=== PATIENT | female | born 1965 | race Caucasian/White ===

== ENCOUNTER 2017-06-03 16:06 | Emergency (ER) | payer BC ==
[~2017-06-03] VITALS: Ht 167.6 cm; Wt 79.0 kg
[~2017-06-03 16:06] MED LIST: ALPR0.5T3 PO; LYRI75CA PO; MIGR4SPR INH; NAPR500 PO; PROM12.54 PO; TOPI1CAP22 PO; VALA1TAB PO
[2017-06-03 16:08] VITALS: BP 135/62; PULSE 87; RESP 15; TEMP 97.9; O2SAT 99
[2017-06-03] MEDS ORDERED: SODIUM CHLOR 0.9% 1000 ML INJ 1,000 ML IV SCH (17:32)
[2017-06-03] MEDS ORDERED: SODIUM CHLORIDE 0.9% FLUSH 10 ML FLUSH IV FLUSH PRN (17:45)
[2017-06-03 18:14] VITALS: O2SAT 98
--- NOTE | 2017-06-03 18:19 | PD ---
HPI Chief Complaint: GI Complaint Time Seen by Provider: 18:08 Travel History International Travel<30 days: No Contact w/Intl Traveler<30days: No Traveled to known affect area: No History of Present Illness HPI Patient's 51-year-old female presenting to emergency evaluation of left upper quadrant pain. Patient states the pain is impressive for 2-3 weeks, getting worse over the last several days. On May 24 she noted that she had bright red blood in the toilet, she did not have another episode like that but states that her stools have been loose and dark and appeared coffee ground like. She states pain is a 7 out of 10, she described as crampy and grabbing in nature. It lasts for a few minutes and then improved somewhat but does not resolve completely. He states she's felt nauseated but has not vomited. She reports she is not feeling well. She saw her primary doctor today who sent her to the emergency department for evaluation. Patient denies any history of GI bleed in the past. PFSH Past Medical History Reproductive: Yes (endometriosis) Migraines: Yes ?: Not Past Surgical History Cholecystectomy: Yes Social History Alcohol Use: Yes (occasional) Tobacco Use: No Substance Use: No Allergies-Medications (Allergen,Severity, Reaction): Coded Allergies: Imitrex (Verified Allergy, Severe, shock, 06/03/17) Bactrim (Verified Allergy, Intermediate, Hives, 06/03/17) Reported Meds & Prescriptions Reported Meds & Active Scripts Active Alprazolam 0.5 Mg Tab 0.5 Mg PO Q8H PRN Migranal Nasal (Dihydroergotamine Mesylate) 0.5 Mg/Act [place] 4 Mg INH DAILY 2 sprays each nostril as needed for migraine Naprosyn (Naproxen) 500 Mg Tab 500 Mg PO BID Lyrica (Pregabalin) 75 Mg Cap 75 Mg PO TID Topiramate ER (Topiramate) 100 Mg Cap 100 Mg PO DAILY Reported Promethazine (Promethazine HCl) 12.5 Mg Tab 25 Mg PO Q4H PRN Review of Systems Except as stated in HPI: all other systems reviewed are Neg HENT: No: Headaches Cardiovascular: No: Chest Pain or Discomfort Respiratory: No: Shortness of Breath Gastrointestinal: Positive: Nausea, Diarrhea, Abdominal Pain Genitourinary: No: Dysuria Neurologic: Positive: Weakness, No: Syncope Physical Exam Narrative GENERAL: Well-developed, well-nourished, alert female. Resting in no acute distress. SKIN: Warm and dry. HEAD: Atraumatic. Normocephalic. EYES: Pupils equal and round. No scleral icterus. No injection or drainage. ENT: No nasal bleeding or discharge. Mucous membranes pink and moist. NECK: Trachea midline. No JVD. CARDIOVASCULAR: Regular rate and rhythm. RESPIRATORY: No accessory muscle use. Clear to auscultation. Breath sounds equal bilaterally. GASTROINTESTINAL: Abdomen soft, tender to palpation in left upper quadrant, nondistended. Hepatic and splenic margins not palpable. Positive bowel sounds. MUSCULOSKELETAL: Extremities without clubbing, cyanosis, or edema. No obvious deformities. NEUROLOGICAL: Awake and alert. No obvious cranial nerve deficits. Motor grossly within normal limits. Five out of 5 muscle strength in the arms and legs. Normal speech. PSYCHIATRIC: Appropriate mood and affect; insight and judgment normal. Data Data Last Documented VS Vital Signs Date Time Temp Pulse Resp B/P Pulse Ox O2 Delivery O2 Flow Rate FiO2 06/03/17 19:05 17 06/03/17 18:32 92 145/76 100 Room Air 06/03/17 16:08 97.9 Orders Complete Blood Count With Diff (06/03/17 17:32) Comprehensive Metabolic Panel (06/03/17 17:32) Lipase (06/03/17 17:32) Prothrombin Time / Inr (Pt) (06/03/17 17:32) Act Partial Throm Time (Ptt) (06/03/17 17:32) Urinalysis - C+S If Indicated (06/03/17 17:32) Ct Abd/Pel W Iv Contrast(Rout) (06/03/17 17:32) Iv Access Insert/Monitor (06/03/17 17:32) Ecg Monitoring (06/03/17 17:32) Oximetry (06/03/17 17:32) NPO (06/03/17 17:32) Sodium Chlor 0.9% 1000 Ml Inj (Ns 1000 M (06/03/17 17:32) Sodium Chloride 0.9% Flush (Ns Flush) (06/03/17 17:45) Type And Screen (06/03/17 17:32) Ondansetron Inj (Zofran Inj) (06/03/17 18:30) Dicyclomine Inj (Bentyl Inj) (06/03/17 18:30) Iohexol 350 Inj (Omnipaque 350 Inj) (06/03/17 19:55) Labs Laboratory Tests Test 06/03/17 18:25 White Blood Count 11.5 TH/MM3 Red Blood Count 4.28 MIL/MM3 Hemoglobin 13.7 GM/DL Hematocrit 40.4 % Mean Corpuscular Volume 94.5 FL Mean Corpuscular Hemoglobin 31.9 PG Mean Corpuscular Hemoglobin 33.8 % Concent Red Cell Distribution Width 14.7 % Platelet Count 215 TH/MM3 Mean Platelet Volume 10.1 FL Neutrophils (%) (Auto) 70.2 % Lymphocytes (%) (Auto) 24.0 % Monocytes (%) (Auto) 4.8 % Eosinophils (%) (Auto) 0.5 % Basophils (%) (Auto) 0.5 % Neutrophils # (Auto) 8.1 TH/MM3 Lymphocytes # (Auto) 2.8 TH/MM3 Monocytes # (Auto) 0.6 TH/MM3 Eosinophils # (Auto) 0.1 TH/MM3 Basophils # (Auto) 0.1 TH/MM3 CBC Comment DIFF FINAL Differential Comment Prothrombin Time 11.0 SEC Prothromb Time International 1.0 RATIO Ratio Activated Partial 27.1 SEC Thromboplast Time Urine Color YELLOW Urine Turbidity HAZY Urine pH 6.5 Urine Specific [place] 1.023 Urine Protein TRACE mg/dL Urine Glucose (UA) NEG mg/dL Urine Ketones 150 mg/dL Urine Occult Blood NEG Urine Nitrite NEG Urine Bilirubin NEG Urine Urobilinogen LESS THAN 2.0 MG/DL Urine Leukocyte Esterase NEG Urine RBC 8 /hpf Urine WBC 1 /hpf Urine Squamous Epithelial <1 /hpf Cells Urine Amorphous Sediment RARE Urine Bacteria RARE /hpf Urine Mucus FEW /lpf Microscopic Urinalysis Comment CULT NOT INDICATED Sodium Level 140 MEQ/L Potassium Level 4.0 MEQ/L Chloride Level 108 MEQ/L Carbon Dioxide Level 22.3 MEQ/L Anion Gap 10 MEQ/L Blood Urea Nitrogen 16 MG/DL Creatinine 0.75 MG/DL Estimat Glomerular Filtration 81 ML/MIN Rate Random Glucose 84 MG/DL Calcium Level 8.8 MG/DL Total Bilirubin 0.3 MG/DL Aspartate Amino Transf 7 U/L (AST/SGOT) Alanine Aminotransferase 14 U/L (ALT/SGPT) Alkaline Phosphatase 21 U/L Total Protein 7.6 GM/DL Albumin 3.5 GM/DL Lipase 193 U/L Blood Type A POSITIVE Antibody Screen NEGATIVE Blood Bank Comment [facility] Medical Decision Making Medical Screen Exam Complete: Yes Emergency Medical Condition: Yes Interpretation(s) Last Impressions Abdomen/Pelvis CT 06/03/17 2422 Signed Impressions: Service Date/Time: Saturday, June 03, 2017 19:42 - CONCLUSION: 1. Diverticulosis without diverticulitis. 2. Atherosclerosis. 3. Left renal cysts. Sae Calle MD Laboratory Tests Test 06/03/17 18:25 White Blood Count 11.5 TH/MM3 Red Blood Count 4.28 MIL/MM3 Hemoglobin 13.7 GM/DL Hematocrit 40.4 % Mean Corpuscular Volume 94.5 FL Mean Corpuscular Hemoglobin 31.9 PG Mean Corpuscular Hemoglobin 33.8 % Concent Red Cell Distribution Width 14.7 % Platelet Count 215 TH/MM3 Mean Platelet Volume 10.1 FL Neutrophils (%) (Auto) 70.2 % Lymphocytes (%) (Auto) 24.0 % Monocytes (%) (Auto) 4.8 % Eosinophils (%) (Auto) 0.5 % Basophils (%) (Auto) 0.5 % Neutrophils # (Auto) 8.1 TH/MM3 Lymphocytes # (Auto) 2.8 TH/MM3 Monocytes # (Auto) 0.6 TH/MM3 Eosinophils # (Auto) 0.1 TH/MM3 Basophils # (Auto) 0.1 TH/MM3 CBC Comment DIFF FINAL Differential Comment Prothrombin Time 11.0 SEC Prothromb Time International 1.0 RATIO Ratio Activated Partial 27.1 SEC Thromboplast Time Urine Color YELLOW Urine Turbidity HAZY Urine pH 6.5 Urine Specific [place] 1.023 Urine Protein TRACE mg/dL Urine Glucose (UA) NEG mg/dL Urine Ketones 150 mg/dL Urine Occult Blood NEG Urine Nitrite NEG Urine Bilirubin NEG Urine Urobilinogen LESS THAN 2.0 MG/DL Urine Leukocyte Esterase NEG Urine RBC 8 /hpf Urine WBC 1 /hpf Urine Squamous Epithelial <1 /hpf Cells Urine Amorphous Sediment RARE Urine Bacteria RARE /hpf Urine Mucus FEW /lpf Microscopic Urinalysis Comment CULT NOT INDICATED Sodium Level 140 MEQ/L Potassium Level 4.0 MEQ/L Chloride Level 108 MEQ/L Carbon Dioxide Level 22.3 MEQ/L Anion Gap 10 MEQ/L Blood Urea Nitrogen 16 MG/DL Creatinine 0.75 MG/DL Estimat Glomerular Filtration 81 ML/MIN Rate Random Glucose 84 MG/DL Calcium Level 8.8 MG/DL Total Bilirubin 0.3 MG/DL Aspartate Amino Transf 7 U/L (AST/SGOT) Alanine Aminotransferase 14 U/L (ALT/SGPT) Alkaline Phosphatase 21 U/L Total Protein 7.6 GM/DL Albumin 3.5 GM/DL Lipase 193 U/L Blood Type A POSITIVE Antibody Screen NEGATIVE Blood Bank Comment Vital Signs Date Time Temp Pulse Resp B/P Pulse Ox O2 Delivery O2 Flow Rate FiO2 06/03/17 16:08 97.9 87 15 135/62 99 Differential Diagnosis GI bleed versus anemia versus pancreatitis versus obstruction versus UTI versus other Narrative Course Patient is a 51-year-old female that presented to emergency department for evaluation of abdominal pain and blood in her stool. Patient was evaluated by her primary doctor and sent to the emergency department for further workup. Hemoccult was negative. Labs and imaging ordered and pending. CT scan shows diverticulosis without diverticulitis CBC with a white count 11.5, hemoglobin 13.7 Chemistry is unremarkable Lipase is normal Urinalysis is not consistent with Urinary tract infection. Patient will be discharged home, she is encouraged follow-up with firing pin gauger and her primary care provider. Patient was given strict return process. She was advised to return immediately for any new or worsening symptoms. Patient is stable for discharge. [facility] Point of Care Fecal Specimen Occult Blood: Negative Diagnosis Primary Impression: Abdominal pain Qualified Code: R10.12 - Left upper quadrant pain Additional Impression: Diverticulosis Qualified Code: K57.90 - Diverticulosis of intestine without bleeding, unspecified intestinal tract location Referrals: [facility] Primary Care Physician Patient Instructions: Diverticulosis (ED), Diverticulosis Diet (ED), General Instructions Additional Instructions: Follow-up with your primary doctor Return to emergency department immediately for any new or worsening symptoms Med/Other Pt SpecificInfo: Prescription(s) given Scripts Dicyclomine (Bentyl)10 Mg Cap10 Mg PO TID PRN (Bowel Management) 7 Days Ref 0 Prov:Denae Rodriguez 06/03/17 Disposition: 01 DISCHARGE HOME Condition: Stable Denae Rodriguez Jun 03, 2017 18:19
[2017-06-03] MEDS ORDERED: PROM12.54 PO (18:21)
[2017-06-03] MEDS ORDERED: DICYCLOMINE HCL 20 MG/2 ML VIAL IM ONE (18:30)
[2017-06-03] MEDS ORDERED: ONDANSETRON HCL 4 MG/2 ML VIAL IV PUSH ONE (18:30)
[2017-06-03 18:32] VITALS: BP 145/76; PULSE 92; RESP 19; O2SAT 100
[2017-06-03 18:54] LABS: AUTOMATED NEUTROPHIL # 8.1 TH/MM3 (1.8-7.7); BASOPHIL # 0.1 TH/MM3 (0-0.2); BASOPHIL % 0.5 % (0.0-2.0); EOSINOPHIL # 0.1 TH/MM3 (0-0.4); EOSINOPHIL % 0.5 % (0.0-4.0); HEMATOCRIT 40.4 % (35.0-46.0); HEMO FLAGS DIFF FINAL; LYMPHOCYTE # 2.8 TH/MM3 (1.0-4.8); MEAN CELL VOLUME 94.5 FL (80.0-100.0); MEAN CORPUSCULAR HEMOGLOBIN 31.9 PG (27.0-34.0); MEAN CORPUSCULAR HGB CONC 33.8 % (32.0-36.0); MONO % 4.8 % (0.0-8.0); NEUT % 70.2 % (16.0-70.0); PLATELET COUNT 215 TH/MM3 (150-450); RED BLOOD COUNT 4.28 MIL/MM3 (4.00-5.30); RED CELL DISTRIBUTION WIDTH 14.7 % (11.6-17.2); WHITE BLOOD COUNT 11.5 TH/MM3 (4.0-11.0)
[2017-06-03 18:55] LABS: BACTERIA, URINE RARE /hpf; BLOOD, URINE NEG (NEG); COMMENT (UR) CULT NOT INDICATED; CULTURE IF INDICATED CULT NOT INDICATED; GLUCOSE,URINE NEG (NEG); KETONE, URINE 150 mg/dL (NEG); MUCUS URINE FEW /lpf (OCC); NITRITE,URINE NEG (NEG); PH, URINE 6.5 (5.0-8.5); SQUAMOUS EPITHELIAL CELL URINE <1 /hpf (0-5); URINE COLOR YELLOW (YELLW/STRAW)
[2017-06-03 19:04] LABS: APTT (PATIENT) 27.1 SEC (24.3-30.1)
[2017-06-03 19:11] LABS: ALT (GPT) 14 U/L (10-53); ANION GAP 10 MEQ/L (5-15); AST (GOT) 7 U/L (15-37); BICARBONATE 22.3 MEQ/L (21.0-32.0); BLOOD UREA NITROGEN 16 MG/DL (7-18); CHLORIDE 108 MEQ/L (98-107); GLOMERULAR FILTRATION RATE 81 ML/MIN (>89); SODIUM (NA) 140 MEQ/L (136-145)
[2017-06-03 19:13] LABS: ALKALINE PHOSPHATASE 21 U/L (45-117); TOTAL BILIRUBIN ADULT 0.3 MG/DL (0.2-1.0)
[2017-06-03] MEDS ORDERED: IOHEXOL 350 MG/ML 10 ML VIAL (for RAD DIAG) IV ONE (19:55)
--- NOTE | 2017-06-03 20:10 | RADRPT ---
EXAM DATE/TIME: 06/03/2017 19:42 [facility] COMPARISON: No previous studies available for comparison. INDICATIONS : Left upper quadrant pain with nausea and diarrhea. IV CONTRAST: 95 cc Omnipaque 350 (iohexol) IV ORAL CONTRAST: No oral contrast ingested. RADIATION DOSE: 10.23 CTDIvol (mGy) MEDICAL HISTORY : None SURGICAL HISTORY : None. ENCOUNTER: Initial ACUITY: 3 weeks PAIN SCALE: 5/10 LOCATION: Left upper quadrant TECHNIQUE: Volumetric scanning of the abdomen and pelvis was performed. Using automated exposure control and ad justment of the mA and/or kV according to patient size, radiation dose was kept as low as reasonably achievable to obtain optimal diagnostic quality images. DICOM format image data is available electro nically for review and comparison. FINDINGS: There is a calcified granuloma in the right lower lobe and calcified right hilar lymph node. No pleur al or pericardial effusions. Cholecystectomy clips are present. Liver, spleen, pancreas, adrenal glan ds are unremarkable. There is an exophytic simple cyst left lower pole kidney measuring 2.3 cm and a 1.4 cm lower pole cyst posteriorly. Right kidney unremarkable. No adenopathy. Atherosclerotic calcifi cations of the aorta and iliac vessels noted. Urinary bladder, uterus no unremarkable. There is diver ticulosis of the sigmoid and descending colon. He no inflammatory changes are identified in the abdom en or pelvis. The osseous structures are intact. CONCLUSION: 1. Diverticulosis without diverticulitis. 2. Atherosclerosis. 3. Left renal cysts. Sae Calle MD on June 03, 2017 at 20:06 Board Certified Radiologist. This report was verified electronically.
[2017-06-03] MEDS ORDERED: DICY10 PO (20:31)
[2017-06-03 20:56] VITALS: BP 136/72
[2017-06-14] MEDS ORDERED: DICY10CA12 PO (15:21)
[2017-06-17] MEDS ORDERED: NAPR500 PO (12:30)
[2017-06-17] MEDS ORDERED: PROM12.54 PO (12:34)
== END 2017-06-03 20:57 | disposition home or self-care (01) ==
LOC: NEPE 16:06
DX: R10.12 Left upper quadrant pain (principal); K57.90 Diverticulosis of intestine, part unspecified, without perforation or abscess without bleeding; R19.5 Other fecal abnormalities; R11.0 Nausea; Z87.42 Personal history of other diseases of the female genital tract; Z86.69 Personal history of other diseases of the nervous system and sense organs
CPT/HCPCS: 74177; 80053; 81001; 83690; 85025; 85610; 85730; 86850; 86900; 86901; 96372; 96374; 99285; J0500; J2405; J7030; Q9967